=== PATIENT | female | born 1985 | race African-American/Black ===

== ENCOUNTER 2020-12-05 09:23 | Emergency (ER) | payer OTHER, SELFPAY ==
--- NOTE | ~2020-12-05 | CT_ITS ---
EXAMINATION: CTA chest PE protocol DATE: 12/05/2020 11:19 INDICATION: Shortness of breath and midsternal chest pain TECHNIQUE: Computed tomography (CT) pulmonary angiogram of the chest was performed with 100 mL Omnipa que-350 intravenous contrast. Additional 3D reconstructions utilizing coronal maximum intensity proje ction (MIP) were performed. Automated exposure control and iterative reconstruction technique were em ployed. The dose-length product was 296.92 mGy-cm. COMPARISON: None FINDINGS: Excellent contrast opacification of the pulmonary arteries. There is mild streak artifact from dense contrast in the superior vena cava and right atrium. Minimal scattered respiratory motion artifact. N o pulmonary embolism. Lungs are clear with no pneumonia, pulmonary edema or other pulmonary infiltrat es. No pleural effusion or pneumothorax. Heart size is normal. No pericardial effusion. Thoracic aort a is normal in caliber with no dissection. No pathologically enlarged thoracic lymphadenopathy. Bones are unremarkable. IMPRESSION: 1. No pulmonary embolus or other acute cardiopulmonary disease. Reviewed, dictated and finalized at location A.
--- NOTE | ~2020-12-05 | XR_ITS ---
EXAMINATION: XR chest 1V portable DATE: 12/05/2020 10:45 INDICATION: Midsternal chest pain. TECHNIQUE: A single frontal view of the chest was obtained. COMPARISON: None. FINDINGS: The chest demonstrates clear lungs without pneumonia, pleural effusion, or pneumothorax. Th e heart size is normal. IMPRESSION: 1. No acute cardiopulmonary disease. Reviewed, dictated and finalized at location A.
[2020-12-05 10:06] VITALS: BP 149/84; PULSE 88; RESP 31; TEMP 36.8; O2SAT 100
--- NOTE | 2020-12-05 10:14 | ECG_ITS ---
Measurements Intervals [place] Rate: 84 P: 17 NC: 166 QRS: 19 QRSD: 89 T: 18 QT: 339 QTc: 403 Interpretive Statements SINUS OR ECTOPIC ATRIAL RHYTHM ATRIAL PREMATURE COMPLEX BORDERLINE ECG Electronically Signed On 12-05-2020 12:16:27 CDT by Humphrey Lizarraga D.O.
[2020-12-05 10:42] LABS: Basophils Absolute Auto 0.1 K/mm3 (0.0-0.1); Basophils Percent Auto 0.8 % (0.2-1.2); Eosinophils Absolute Auto 0.1 K/mm3 (0-0.3); Eosinophils Percent Auto 2.3 % (0-4.4); Hemoglobin 12.4 g/dL (12.0-15.0); Immature Granulocyte Absolute 0.02 K/mm3 (0.00-0.031); Immature Granulocyte Percent A 0.3 % (0-0.5); Lymphocytes Absolute Auto 1.54 K/mm3 (0.9-3.2); Lymphocytes Percent Auto 24.9 % (18.3-44.2); Mean Corpuscular HGB Conc 31.8 g/dl (32-36); Mean Corpuscular Hemoglobin 27.4 pg (26-34); Mean Corpuscular Volume 86.3 fl (80-100); Mean Platelet Volume 12.1 fl (7.4-10.4); Monocytes Absolute Auto 0.4 K/mm3 (0.1-0.6); Monocytes Percent Auto 5.7 % (2.6-8.5); Neutrophils Absolute Auto 4.1 K/mm3 (1.3-6.7); Platelet Count Result 272 k/mm3 (150-375); Red Blood Count 4.52 M/mm3 (4.2-5.4); Red Cell Distribution Width 14.2 % (11.5-14.5); White Blood Count 6.2 K/mm3 (4.5-10.0)
[2020-12-05 10:52] LABS: Partial Thromboplastin Time 28.4 SECONDS (22.3-36.8)
[2020-12-05 10:53] LABS: Alanine Aminotransferase 15 U/L (4-35); Albumin Level 3.9 g/dL (3.5-5.1); Alkaline Phosphatase 67 U/L (38-126); Anion Gap 7 mmol/L (8-16); Aspartate Amino Transferase 19 U/L (14-36); Bilirubin,Total 0.2 mg/dL (0.2-1.3); Blood Urea Nitrogen 8 mg/dL (7-17); Calcium 8.7 mg/dL (8.4-10.2); Carbon Dioxide 27 mmol/L (22-30); Chloride 107 mmol/L (98-107); Estimated CRCL calculation 64 ml/min; Estimated Glomerular Filt Rate > 60; Glucose 82 mg/dL (65-105); Potassium 3.6 mmol/L (3.4-5.0); Sodium 141 mmol/L (137-145)
[2020-12-05 10:54] LABS: D Dimer 0.51 ug/mL (<0.48)
[2020-12-05 11:00] VITALS: BP 106/75; PULSE 72; RESP 18; O2SAT 100
[2020-12-05 11:00] LABS: NT Pro B Type Natriuretic Pept 144 pg/mL (5-100)
[2020-12-05 11:04] LABS: Troponin I < 0.012 ng/mL (0.000-0.034)
--- NOTE | 2020-12-05 13:14 | ED.CHESTPAIN ---
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 and is scheduled for echo stress test and other evaluations patient notes that she felt like her heart was beating fast on arrival she is in no distress does not appear uncomfortable and denies any recent illness or other complaints Related Data Home Medications Medication Instructions Recorded Confirmed ondansetron HCl [Zofran] 06/29/19 Allergies Allergy/AdvReac Type Severity Reaction Status Date / Time No Known Allergies Allergy Verified 10/17/19 13:12 Review of Systems Review of Systems: All systems reviewed & are unremarkable except as noted in HPI and below PMFSH Past Medical History Medical History No significant past medical history Surgical History Surgical History No significant past surgical history Social History Social History Smoking status: Never smoker Gender identity (if verbalized by the patient): Female Exam Narrative: Exam Narrative: GENERAL: Well-appearing, well-nourished, and in no acute distress. HEAD: Normocephalic, atraumatic. EYES: PERRLA and EOMI. ENT: Nares clear, no rhinorrhea or epistaxis. Mucous membranes moist. NECK: Supple. No adenopathy or masses. CHEST: Clear to auscultation. No respiratory distress. No wheezes rales or rhonchi HEART: Regular rate and rhythm. No murmur heard. Normal peripheral pulses. ABDOMEN: Soft, nontender, nondistended EXTREMITIES: Normal range of motion. No edema. SKIN: Warm, dry, no rash. NEURO: No focal deficits. Alert and oriented x3. PSYCH: Normal mood and affect. Course Course Emergency Course: Patient in room no distress aware of case findings treatment plan diagnosis Vital Signs Vital signs: Vital Signs Temperature 98.2 F 12/05/20 10:06 Pulse Rate 88 12/05/20 10:06 Respiratory Rate 31 H 12/05/20 10:06 Blood Pressure 149/84 H 12/05/20 10:06 Pulse Oximetry 100 12/05/20 10:06 Temperature 98.2 F 12/05/20 10:06 Pulse Rate 68 12/05/20 13:30 Respiratory Rate 19 12/05/20 13:30 Blood Pressure 110/89 12/05/20 13:30 Pulse Oximetry 100 12/05/20 13:30 MDM - Chest Pain MDM Narrative Medical decision making narrative: Patients EKGs and labs are without significant high risk changes. Cardiac risk factors were reviewed. Patient is felt likely to be low risk for ACS and reasonable for further risk stratification testing as an outpatient. Pain was not sudden or maximal in onset without tearing or ripping. quality. No other signs or symptoms to suggest aortic dissection. A low-risk Wells criteria is noted. PE is felt to be unlikely. No pneumonia or URI symptoms were seen on evaluation today. Patient is felt to b reasonable for continued evaluation as an outpatient. Lab Data Result diagrams: 12/05/20 10:30 12/05/20 10:30 Labs: Lab Results 12/05/20 12/05/20 12/05/20 Range/Units 10:30 10:30 10:30 WBC 6.2 (4.5-10.0) K/mm3 RBC 4.52 (4.2-5.4) M/mm3 Hgb 12.4 (12.0-15.0) g/dL Hct 39.0 (37.0-47.0) % MCV 86.3 (80-100) fl MCH 27.4 (26-34) pg MCHC 31.8 L (32-36) g/dl RDW 14.2 (11.5-14.5) % Plt Count 272 (150-375) k/mm3 MPV 12.1 H (7.4-10.4) fl Immature Gran % (Auto) 0
[2020-12-05 13:16] LABS: Troponin I < 0.012 ng/mL (0.000-0.034)
[2020-12-05 13:30] VITALS: BP 110/89; PULSE 68; RESP 19; O2SAT 100
== END 2020-12-05 14:01 | disposition home or self-care (01) ==
PROVIDERS: Emergency Medicine Emergency Medical Services; Emergency Provider Emergency Medicine; PCP Nurse Practitioner Family
DX: R07.2 Precordial pain (principal); I49.1 Atrial premature depolarization
CPT/HCPCS: 36415; 71045; 71275; 80053; 81025; 83880; 84484; 85025; 85380; 85610; 85730; 93005; 99284; Q9967

== ENCOUNTER 2021-07-14 11:10 | Emergency (ER) | payer OTHER, SELFPAY ==
[2021-07-14 11:40] VITALS: BP 120/91; PULSE 88; RESP 18; TEMP 36.3; O2SAT 100
== END 2021-07-15 01:28 | disposition left against medical advice (07) ==
LOC: ANHED 13:03
PROVIDERS: PCP Nurse Practitioner Family
DX: Z53.21 Procedure and treatment not carried out due to patient leaving prior to being seen by health care provider (principal)
CPT/HCPCS: 99199